=== PATIENT | male | born 1980 | race Caucasian/White ===

== ENCOUNTER 2020-08-05 23:56 | Emergency (ER) | payer OTHER ==
[2020-08-06 01:12] LABS: HEMOGLOBIN 18.2 gm/dl (14.0-17.5); RED BLOOD COUNT 5.66 M/UL (4.20-5.50); WHITE BLOOD COUNT 9.2 K/UL (4.5-11.0)
[2020-08-06 01:31] LABS: BUN/CREATININE RATIO 15 (0-10)
== END 2020-08-06 02:55 | disposition short-term general hospital (02) ==
LOC: ER1 23:56
PROVIDERS: Internal Medicine
DX: I62.9 Nontraumatic intracranial hemorrhage, unspecified (principal); I10 Essential (primary) hypertension; Z20.822 Contact with and (suspected) exposure to COVID-19; F17.210 Nicotine dependence, cigarettes, uncomplicated
CPT/HCPCS: 70450; 71045; 80053; 80307; 82550; 82553; 82962; 84484; 85025; 85610; 85730; 87635; 93005; 96374; 99285

== ENCOUNTER 2020-08-09 22:01 | Emergency (ER) | payer OTHER ==
[2020-08-09 23:22] LABS: HEMOGLOBIN 17.4 gm/dl (14.0-17.5); RED BLOOD COUNT 5.36 M/UL (4.20-5.50); WHITE BLOOD COUNT 7.5 K/UL (4.5-11.0)
[2020-08-09 23:48] LABS: BUN/CREATININE RATIO 15 (0-10)
== END 2020-08-10 08:20 | disposition other institution (70) ==
LOC: ER1 22:01
PROVIDERS: Family Medicine
DX: R51.9 Headache, unspecified (principal); I10 Essential (primary) hypertension; F17.210 Nicotine dependence, cigarettes, uncomplicated; Z20.822 Contact with and (suspected) exposure to COVID-19; Z86.73 Personal history of transient ischemic attack (TIA), and cerebral infarction without residual deficits; Z86.19 Personal history of other infectious and parasitic diseases
CPT/HCPCS: 70450; 80053; 80307; 81001; 82550; 82553; 83874; 84484; 85025; 93005; 96374; 96375; 96376; 99285; J1885; J2270; J2405; U0002